=== PATIENT | male | born 1955 | race Caucasian/White ===

== ENCOUNTER 2020-03-03 11:37 | Outpatient (REF) | payer BC, SELFPAY ==
--- NOTE | 2020-03-03 11:45 | XR_ITS ---
EXAMINATION: XR HIP, RIGHT CLINICAL INFORMATION: Pelvis and right hip x-ray COMPARISON: DJD TECHNIQUE: Two views of the right hip and one view of the pelvis. FINDINGS: Bone alignment is normal. No fracture or dislocation is seen. There is a bilateral hip arthritis with joint space narrowing and osteophyte formation, moderate on the right and moderate to severe on the left. There is a small soft tissue ossification or calcification adjacent to the superior lateral right acetabulum. Bones of the pelvis are unremarkable. There are degenerative changes of the visualized lower lumbar spine. XR/XR hip RT w PEL1V IMPRESSION: Bilateral hip arthritis, left greater than right. Degenerative changes of the visualized lower lumbar spine.
== END 2020-03-03 11:38 | disposition home or self-care (01) ==
LOC: HO.XRAY 11:37
PROVIDERS: Visit Provider Physical Medicine & Rehabilitation
DX: M16.0 Bilateral primary osteoarthritis of hip (principal)
CPT/HCPCS: 73502

== ENCOUNTER → 2020-07-28 11:20 | Outpatient (BNVA) | payer BC, SELFPAY | PROVIDERS: PCP Family Medicine; Visit Provider Internal Medicine | DX: I48.0 Paroxysmal atrial fibrillation (principal); I10 Essential (primary) hypertension; G47.33 Obstructive sleep apnea (adult) (pediatric); Z51.81 Encounter for therapeutic drug level monitoring; Z79.899 Other long term (current) drug therapy; Z99.89 Dependence on other enabling machines and devices | CPT/HCPCS: 93005 ==

== ENCOUNTER 2021-04-28 09:34 | Outpatient (REF) | payer MEDICARE, BC, SELFPAY ==
[2021-04-28 11:00] LABS: COVID-19 Test Negative (Negative)
== END 2021-04-28 09:35 | disposition home or self-care (01) ==
LOC: HO.LAB 09:34
PROVIDERS: Visit Provider Internal Medicine
DX: Z20.822 Contact with and (suspected) exposure to COVID-19 (principal)
CPT/HCPCS: 36415; 87635; C9803

== ENCOUNTER → 2021-08-01 14:26 | Outpatient (BNVA) | payer MEDICARE, BC, SELFPAY | PROVIDERS: PCP Family Medicine; Referring Provider Family Medicine; Visit Provider Internal Medicine | DX: I48.0 Paroxysmal atrial fibrillation (principal); I10 Essential (primary) hypertension; G47.33 Obstructive sleep apnea (adult) (pediatric); Z51.81 Encounter for therapeutic drug level monitoring; Z79.899 Other long term (current) drug therapy; Z99.89 Dependence on other enabling machines and devices | CPT/HCPCS: 93005; 99212 ==

== ENCOUNTER → 2022-07-13 08:15 | Outpatient (REF) | payer MEDICARE, BC, SELFPAY ==
--- NOTE | ~2022-07-13 | NM_ITS ---
Myocardial perfusion study Indication: Paroxysmal atrial fibrillation with exertion shortness of breath evaluate for myocardial ischemia Technique: The patient was brought in for a Lexiscan perfusion study on 07/13/2022. Patient performed low-level exercise and was injected 0.4 mg of Lexiscan intravenously. Within a minute of injection, 35 mCi of sestamibi was given intravenously. Images were obtained using the SPECT gamma camera interlaced with the gating device. Images were obtained in supine position. Resting perfusion study was performed on 07/14/2022. Patient was administered 35 mCi of sestamibi intravenously at rest. Images were then obtained in supine position. Images obtained with and without CT attenuation. Total DLP 118 mGy-cm. Images were processed with the software and compared side to side in short axis, horizontal long axis and vertical long axis views. Findings: The stress perfusion study showed non attenuated images show minimally reduced uptake in the anterior wall and moderately reduced uptake in the inferobasal as well as mildly reduced uptake in the mid inferior wall of the LV myocardium. Remainder of the LV myocardium is normally perfused. Attenuation corrected images show minimally thinning of the anterior wall and moderately reduced uptake in the basal inferior wall of the LV myocardium... The gated study shows normal LV systolic function with calculated LVEF of 56%. LV cavity is normal in size. The gated study shows normal systolic wall thickening and contraction of segments. Resting study shows non attenuated some improvement in the basal inferior wall of the LV myocardium. Attenuation corrected images shows improved uptake in the basal inferior wall of the LV myocardium.. Gating at rest reveals normal systolic wall motion with ejection fraction at 59%. The findings are consistent with mild intensity small area of basal inferior wall ischemia. NM/NM cardiolite stress test Impression: 1. Myocardial perfusion imaging study shows mild intensity basal inferior wall ischemia 2. Gated LVEF is 59% 3. Transient ischemic dilatation not present EKG is nondiagnostic for ischemia
--- NOTE | 2022-07-13 08:21 | CA_ITS ---
Acquisition Time: 2022-07-13 08:38:57 Total Exercise Time: 00:07:07 Test Indications: AFIB Medications: SEE H Protocol: RALPH Max HR: 114 BPM 74% of Pred: 154 BPM Max BP: 160/080 mmHG Max Work Load: 8.7 METS Exercise stress test with exercise 7 min 7 sec of Ralph protocol achieving 74% MPHR with moderate SOB and fatigue and need to stop with non-diagnostic EKG for ischemia due to suboptimal heart rate. PT assited to sitting position and once breathing improved tested changed to pharmacological nuclear stress test with Lexiscan injection without anginal symptoms, without arrhythmias, normotensive reponse to injection with non-diagnositic EKG for ischemia. In recovery he was treated with Aminophylline 75mg IVP to rev erse Lexiscan. Nuclear images pending. Test reviewed with Dr Villalpando Referred By: Aakash Valles Overread By: YOSELYN ALFARO
== END ==
LOC: HO.CARD 08:15
PROVIDERS: PCP Family Medicine; Visit Provider Internal Medicine
DX: I48.0 Paroxysmal atrial fibrillation (principal)
CPT/HCPCS: 78452; 93017; A9500; J2785

== ENCOUNTER → 2022-07-19 08:53 | Outpatient (REF) | payer MEDICARE, BC, SELFPAY ==
--- NOTE | 2022-07-19 08:56 | CA_ITS ---
Transthoracic Echocardiogram Patient (Last, First, Middle): Lacho Lee Joseph Gender: Male Date of : 1955 Age: 66 Procedure Date: 07/19/2022 Procedure Type: Transthoracic Echocardiogram Location: OP Height: 187. cm Weight: 111.13 kg BSA: 2.36 m2 Heart Rate: bpm BP: 128 / 80 mmHg Tempering Kiln Tender: VIDAL Referring MD: Aakash Valles MD Butcher Scullion: Paul Gant MD Symptoms: I48.0 - Paroxysmal atrial fibrillation Study Quality: Good ECG Rhythm: Sinus Conclusions: - 1. Normal LV systolic function with mild LVH with grade 1 diastolic dysfunction 2. Mildly dilated left atrium 3. Normal cardiac valvular Doppler 4. Normal RV systolic pressure 5. No gross pericardial effusion Findings Left Ventricle Normal left ventricular size and systolic function. There is mildly increased left ventricular wall thickness. The visually estimated ejection fraction is between 60-65%. Spectral Doppler is indicative of an impaired relaxation filling pattern. E/E prime ratio is <8, consistent with normal filling pressures. Evidence suggests grade I (mild) diastolic dysfunction. Peak GLS is -17.2%, within normal limits Right Ventricle Normal right ventricular cavity size and systolic function. Atria The left atrium is mildly dilated. There is no evidence of interatrial shunt. The right atrium is normal in size. Aortic Valve The aortic valve structure and function is likely normal. There is no aortic valve stenosis. There is no aortic valve regurgitation. Mitral Valve Normal mitral valve structure and function. There is trace mitral valve regurgitation. There is no mitral valve stenosis. Pulmonic Valve The pulmonic valve is likely normal. There is trace to mild pulmonic valve regurgitation. Tricuspid Valve Normal tricuspid valve structure. There is trace tricuspid valve regurgitation. The right ventricular systolic pressure is normal. The right ventricular systolic pressure is 21 mmHg. Normal right atrial pressure. There is no evidence of pulmonary hypertension. Great Vessels All visible segments of the aorta are normal in size. The pulmonary artery was not well visualized. Venous The inferior vena cava is normal in size and collapses greater than 50% with inspiration. Pericardium/Pleural There is no evidence of pericardial effusion. Prior Study Comparison No significant change compared to prior study dated: 07/11/2018. Measurements 2D Linear Measurements RVIDd: 4.67 RVIDd Index: 1.98 IVSd: 1.23 0.6-0.9/0.6-1.0 cm LVIDd: 4.78 3.9-5.3/4.2-5.9 cm LVIDd Index: 2.03 2.4-3.2/2.2-3.1 cm/m2 LVIDs: 2.89 2.0-3.6 cm LVPWd: 1.22 0.7-1.1 cm Ao Root: 3.60 2.1-3.5 cm LA Diam: 4.20 2.7-3.8/3.0-4.0 cm LAIDs Index: 1.78 1.5-2.3 cm/m2 LV Mass: 279.47 67-162/88-224 g LV Mass Index: 118.42 43-95/49-115 g/m2 LVOT Diam: 2.20 3.0+(-)1.3 cm 2D Systolic Function EF 4C: 59.00 >55% EF 2C: 61.30 >55% EF BiP: 60.30 >55% Mitral Valve MV Pk E: 0.77 MV PK A: 0.83 MV Decel Time: 195.00 E/A: 0.90 E'Lateral: 9.46 E'Medial: 6.31 E/E' Med: 12.20 E/E' Lat: 8.20 PHT: 57.00 MVA PHT: 3.86 Decel [place]: 3.96 Aortic Valve AoV Pk Harshal: 1.51 AoV Mn Harshal: 1.03 AoV VTI: 0.37 AoV Pk Grad: 9.00 Aov Mn Grad: 5.00 [place] Cont.VTI: 2.48 LVOT LVOT Pk Harshal: 1.01 LVOT Mn Harshal: 0.59 LVOT VTI: 0.24 LVOT Pk Grad: 4.00 LVOT Mn Grad: 2.00 LVOT Diam: 2.20 LVOT Area: 3.80 Diastolic Function MV Pk E: 0.77 MV Pk A: 0.83 E/A: 0.90 E'Medial: 6.31 E/E' Med: 12.20 E' Laterial: 9.46 E/E' Lat: 8.20 Right Ventricle TAPSE (mm): 30.00 TVS' Harshal: 13.00 Tricuspid Valve TR Pk Harshal: 2.15 TR Pk Grad: 18.00 RA Press: 3.00 RVSP: 21.00 Great Vessels Aorta Ao Root-2D: 3.60 2.0-3.7 cm Ao Asc: 3.40 2.1-3.4 cm Ao Arch: 3.50 Pulmonary Valve PV Pk Harshal: 1.15 Peak PV Grad: 5.00 Updated in Other Vendor System with Status of Final Paul Gant MD electronically signed on 07/19/2022 1:53:33 PM with status of Final
== END ==
LOC: HO.CARD 08:53
PROVIDERS: PCP Family Medicine; Visit Provider Internal Medicine
DX: I48.0 Paroxysmal atrial fibrillation (principal)
CPT/HCPCS: 93306; 93356

== ENCOUNTER 2022-07-24 15:24 | Outpatient (REF) | payer MEDICARE, BC, SELFPAY ==
[2022-07-24 16:49] LABS: Anion Gap 15 (12-20); Blood Urea Nitrogen 17 mg/dL (9-16); Carbon Dioxide 23 mmol/L (22-29); Chloride 107 mmol/L (96-108); Estimated Glomerular Filt Rate > 60; Glucose Random 100 mg/dL (60-115); Potassium 4.3 mmol/L (3.3-5.1); Sodium 141 mmol/L (135-145)
== END 2022-07-24 15:25 | disposition home or self-care (01) ==
LOC: HO.LAB 15:24
PROVIDERS: Visit Provider Nurse Practitioner Family
DX: R94.39 Abnormal result of other cardiovascular function study (principal)
CPT/HCPCS: 36415; 80048

== ENCOUNTER → 2022-08-29 08:44 | Outpatient (BNVA) | payer MEDICARE, BC, SELFPAY | PROVIDERS: PCP Family Medicine; Referring Provider Family Medicine; Visit Provider Internal Medicine | DX: I25.10 Atherosclerotic heart disease of native coronary artery without angina pectoris (principal); I48.0 Paroxysmal atrial fibrillation; I10 Essential (primary) hypertension; G47.33 Obstructive sleep apnea (adult) (pediatric); Z51.81 Encounter for therapeutic drug level monitoring; Z79.899 Other long term (current) drug therapy; Z99.89 Dependence on other enabling machines and devices | CPT/HCPCS: 93005; 99212 ==

== ENCOUNTER → 2022-08-31 11:28 | Outpatient (REF) | payer MEDICARE, BC, SELFPAY ==
--- NOTE | 2022-08-31 11:30 | HM_ITS ---
Conclusion: 1. Patient was monitored for total period of 3 days 2. Baseline was normal sinus rhythm with average heart rate of 83 beats per minute 3. Intermittent episodes of atrial fibrillation, with total burden of 42.5% with longest episode lasting 9 hour and 36 minutes with fastest heart of 150 beats per minute 4. Frequent PACs with total burden of 8.5% 6. Frequent PVCs with total burden of 1.2% 7. 12 nonsustained ventricular tachycardia events noted with longest lasting 8 beats and the fastest 150 beats per minute, aberrant atrial flutter cannot be entirely ruled out 8. Patient reported 6 events that correlated with atrial fibrillation MTDD
== END ==
LOC: HO.CARD 11:28
PROVIDERS: PCP Family Medicine; Visit Provider Internal Medicine
DX: I48.0 Paroxysmal atrial fibrillation (principal); R00.2 Palpitations
CPT/HCPCS: 93242

== ENCOUNTER → 2022-09-12 08:30 | Outpatient (BNVA) | payer MEDICARE, BC, SELFPAY | PROVIDERS: PCP Family Medicine; Referring Provider Family Medicine; Visit Provider Internal Medicine | DX: R00.1 Bradycardia, unspecified (principal) | CPT/HCPCS: 93005 ==

== ENCOUNTER → 2022-09-28 09:00 | Outpatient (REF) | payer MEDICARE, BC, SELFPAY ==
--- NOTE | 2022-09-28 09:03 | HM_ITS ---
* Total monitoring time 3 days. * Underlying rhythm is sinus. Average ventricular rate 63/Min. Range 45 to 81/Min. About 55% of the time, rate less than 60/Min. * Atrial fibrillation/flutter burden is 8.4%. Longest for 6 hours. Fastest 137/Min. * Frequent supraventricular ectopy with a burden of 3.8 %. * No significant pauses. * Occasional PVCs with a burden of 1.5%. Very brief runs. Longest 4 beats. * Patient markers used in association with sinus rhythm, PACs, AF atrial fibrillation. Palpitations in patient diary correlates with the above. MTDD
== END ==
LOC: HO.CARD 09:00
PROVIDERS: PCP Family Medicine; Visit Provider Internal Medicine
DX: I48.0 Paroxysmal atrial fibrillation (principal)
CPT/HCPCS: 93242

== ENCOUNTER 2022-10-02 09:34 | Outpatient (REF) | payer MEDICARE, BC, SELFPAY ==
[2022-10-02 10:04] LABS: Hematocrit 45.1 % (42.0-52.0); Hemoglobin 15.7 g/dl (14.0-18.0); Mean Corpuscular HGB Conc 34.8 g/dl (31.0-36.0); Mean Corpuscular Hemoglobin 31.5 pg (27.0-33.0); Mean Corpuscular Volume 90.4 fL (80.0-98.0); Mean Platelet Volume 9.7 fL (9.4-12.4); Platelet Count 221 X10*3/uL (160-400); Red Blood Count 4.99 X10*6/uL (4.60-5.80); Red Cell Distribution Width 11.8 % (11.0-16.0); White Blood Count 6.1 X10*3/uL (4.8-10.8)
[2022-10-02 10:08] LABS: INTERNATIONAL NORM RATIO 1.5 (0.9-1.1); Prothrombin Time 17.9 SEC (10.0-13.1)
[2022-10-02 10:39] LABS: Anion Gap 13 (12-20); Blood Urea Nitrogen 14 mg/dL (9-16); Calcium 9.3 mg/dL (8.4-10.2); Carbon Dioxide 24 mmol/L (22-29); Chloride 109 mmol/L (96-108); Estimated Glomerular Filt Rate > 60; Glucose Random 105 mg/dL (60-115); Potassium 3.9 mmol/L (3.3-5.1); Sodium 142 mmol/L (135-145)
== END 2022-10-02 09:35 | disposition home or self-care (01) ==
LOC: HO.LAB 09:34
PROVIDERS: PCP Family Medicine; Visit Provider Internal Medicine
DX: I25.10 Atherosclerotic heart disease of native coronary artery without angina pectoris (principal)
CPT/HCPCS: 36415; 80048; 85027; 85610

== ENCOUNTER → 2022-10-26 13:25 | Outpatient (BNVA) | payer MEDICARE, BC, SELFPAY | PROVIDERS: PCP Family Medicine; Referring Provider Family Medicine; Visit Provider Internal Medicine | DX: I25.10 Atherosclerotic heart disease of native coronary artery without angina pectoris (principal); I48.0 Paroxysmal atrial fibrillation; I10 Essential (primary) hypertension; E78.5 Hyperlipidemia, unspecified; G47.33 Obstructive sleep apnea (adult) (pediatric); Z98.890 Other specified postprocedural states; Z99.89 Dependence on other enabling machines and devices; Z79.899 Other long term (current) drug therapy | CPT/HCPCS: 93005; 99212 ==

== ENCOUNTER → 2022-11-02 11:16 | Outpatient (BNVA) | payer MEDICARE, BC, SELFPAY | PROVIDERS: PCP Family Medicine; Visit Provider Internal Medicine | DX: R00.1 Bradycardia, unspecified (principal) | CPT/HCPCS: 93005 ==

== ENCOUNTER 2022-12-13 09:54 | Outpatient (REF) | payer MEDICARE, BC, SELFPAY ==
[2022-12-13 11:17] LABS: Alanine Aminotransferase 43 U/L (0-40); Albumin Level 4.3 g/dL (3.5-5.0); Alkaline Phosphatase 59 U/L (39-117); Aspartate Amino Transferase 52 U/L (5-37); Bilirubin Direct 0.4 mg/dL (0.0-0.5); Bilirubin Total 0.9 mg/dL (0.0-1.0); Cholesterol 119 mg/dL; HDL Cholesterol 46 mg/dL; LDL Cholesterol Calculated 62 mg/dl; Total Protein 7.2 g/dL (6.5-8.0); Triglycerides 58 mg/dL
[2022-12-13 11:35] LABS: TSH reflex Free T4 2.22 uIU/mL (0.32-4.0)
== END 2022-12-13 09:55 | disposition home or self-care (01) ==
LOC: HO.LAB 09:54
PROVIDERS: PCP Family Medicine; Visit Provider Internal Medicine
DX: E78.5 Hyperlipidemia, unspecified (principal); I25.10 Atherosclerotic heart disease of native coronary artery without angina pectoris; I48.0 Paroxysmal atrial fibrillation
CPT/HCPCS: 36415; 80061; 80076; 84443

== ENCOUNTER 2023-03-06 10:38 | Outpatient (REF) | payer MEDICARE, BC, SELFPAY ==
[2023-03-06 12:13] LABS: Alanine Aminotransferase 37 U/L (0-40); Albumin Level 4.2 g/dL (3.5-5.0); Alkaline Phosphatase 60 U/L (39-117); Aspartate Amino Transferase 33 U/L (5-37); Bilirubin Direct 0.3 mg/dL (0.0-0.5); Bilirubin Total 0.8 mg/dL (0.0-1.0)
== END 2023-03-06 10:39 | disposition home or self-care (01) ==
LOC: HO.LAB 10:38
PROVIDERS: Visit Provider Internal Medicine
DX: I25.10 Atherosclerotic heart disease of native coronary artery without angina pectoris (principal); R79.89 Other specified abnormal findings of blood chemistry
CPT/HCPCS: 36415; 80076

== ENCOUNTER 2023-04-11 09:09 | Outpatient (AMB) | payer MEDICARE, BC, SELFPAY ==
[2023-04-11 09:18] VITALS: BP 118/70; PULSE 52; BMI 29.7
--- NOTE | 2023-04-11 09:18 | MHC.OFFVIS ---
Intake Vital Signs 04/11/23 09:18 Height 6 ft 2 in Weight 231 lb 7.766 oz BMI 29.7 BP 118/70 Blood Pressure Location Lt brachial Position Sitting Pulse 52 Intake Visit Reasons: follow up Intake Note: follow up w/ EKG Senior Planning Manager Required: No Accompanied by: Spouse Allergies Penicillins [PENICILLINS] Allergy (Intermediate, Verified 04/11/23 09:19) RASH Medication List - Last Reconciled 04/11/23 by Aakash Valles MD amiodarone 200 mg PO DAILY amlodipine (Norvasc) 10 mg PO DAILY atenolol 100 mg PO DAILY azelaic acid 15% 1 appl topical BID gabapentin (Neurontin) 600 mg PO TID pantoprazole (Protonix) 40 mg PO DAILY rivaroxaban (Xarelto) 20 mg PO DAILY 90 days rosuvastatin 40 mg PO DAILY HPI HPI Comments History of Present Illness Details Suman returns for follow-up regarding atrial fibrillation, coronary disease. He was maintained on flecainide for a long time but after diagnosis of CAD that was stopped. Then put on amiodarone and went for ablation. After the ablation, he states he is actually feeling pretty good. No new issues. No other concerns. Exercising regularly with no issues. 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) Family History Father Cancer Mother Stroke CVD (cardiovascular disease) Social History Alcohol intake: current Alcohol intake frequency: a few times a week Patient Tobacco Use Status: Never used Tobacco Review of Systems Const All systems reviewed & are unremarkable except as noted in HPI and below Reports as per HPI and Reports no additional complaints Eyes Reports as per HPI and Denies no additional complaints ENT Denies no additional complaints and Reports as per HPI Card Reports as per HPI, Reports no additional complaints, Denies acrocyanosis, Denies chest pain, Denies leg edema, Denies lightheadedness, Denies palpitations and Denies dyspnea Resp Reports as per HPI, Denies no additional complaints and Denies dyspnea GI Reports as per HPI and Denies no additional complaints Reports no additional complaints and Reports as per HPI Musc Reports no additional complaints and Reports as per [facility] Skin/Breast Reports system reviewed and no additional complaints, except as documented Neuro Reports no additional complaints and Reports as per HPI Psych Reports no additional complaints and Reports as per HPI Endo Reports no additional complaints, Reports as per HPI and Denies palpitations Daniel/Lymph Reports no additional complaints and Reports as per HPI Aller/Immun Reports no additional complaints and Reports as per HPI Physical Exam Vital Signs: Last Vital Signs Pulse 52 04/11/23 09:18 BP 118/70 04/11/23 09:18 BMI result Body Mass Index 29.7 Const General: comfortable and no acute distress Orientation/consciousness: patient oriented x3 HEENT Other: Unremarkable Head: Yes normal to inspection Neck Neck: Yes normal visual inspection Chest Chest palpation & inspection: normal inspection of the chest Resp Auscultation: clear to auscultation bilaterally Cardio Palpation: normal PMI Heart sounds: S1 normal heart sound present, S2 normal heart sound present, no gallops, no murmurs and no rubs GI Palpation (GI): Soft to palpation Back/Spine/Pelvis Other: unremarkable Skin General skin exam: no rashes or lesions noted Neuro General: patient oriented x3 Extrem General: Yes normal to inspection Psych Mental Status: mental status grossly normal Office Procedures EKG Details: EKG with sinus bradycardia at 52/Min; no significant ST-T changes and otherwise unremarkable[place] [id number], Complete Assessment & Plan Assessment & Plan (1) Atherosclerotic cardiovascular disease: Code(s): I25.10 - Atherosclerotic heart disease of [place] coronary artery without angina pectoris Plan: Cardiac catheterization data reviewed. Left main 40-50% stenosis. Moderate LAD disease. D1 70% stenosis. CT of the left PDA with [id number]-haqu collaterals. Small RCA with mild disease. Last LDL 101 mg/dL. Continue beta-blockers and statins. Cholesterol is well controlled. (2) PAF (paroxysmal atrial fibrillation): Code(s): I48.0 - Paroxysmal atrial fibrillation Plan: Status post ablation. He still on amiodarone as it has been only been a few days. After EP follow-up, this can be stopped hopefully soon. Continue anticoagulation-he will need this long-term. Holter before next visit. (3) Encounter for monitoring anti-arrhythmic therapy: Code(s): Z51.81 - Encounter for therapeutic drug level monitoring; Z79.899 - Other custodial (current) drug therapy Plan: On amiodarone. To be stopped in the next 3 or 4 weeks after EP appointment. (4) Essential hypertension: Code(s): I10 - Essential (primary) hypertension Plan: Stable on amlodipine/atenolol. No changes. (5) ANNABELLA on CPAP: Code(s): G47.33 - Obstructive sleep apnea (adult) (pediatric); Z99.89 - Dependence on other enabling machines and devices Plan: Continue CPAP. Plan Discussed with . Orders: Orders ECG 3 day holter monitor 6 Months I48.0 - Paroxysmal atrial fibrillation Coding Level of Care Code Est Pt Level 4 (79254) Diagnoses Atherosclerotic cardiovascular disease I25.10 PAF (paroxysmal atrial fibrillation) I48.0 Encounter for monitoring anti-arrhythmic therapy Z51.81; Z79.899 Essential hypertension I10 ANNABELLA on CPAP G47.33; Z99.89 CPT Codes EKG - CPT: 46533-[id number], Complete ([id number])
== END 2023-04-11 09:48 | disposition home or self-care (01) ==
PROVIDERS: PCP Family Medicine; Visit Provider Internal Medicine
DX: I25.10 Atherosclerotic heart disease of native coronary artery without angina pectoris (principal); I48.0 Paroxysmal atrial fibrillation; Z51.81 Encounter for therapeutic drug level monitoring; Z79.899 Other long term (current) drug therapy; I10 Essential (primary) hypertension; G47.33 Obstructive sleep apnea (adult) (pediatric); Z99.89 Dependence on other enabling machines and devices
CPT/HCPCS: 93010; 99214

== ENCOUNTER → 2023-04-11 09:09 | Outpatient (BNVA) | payer MEDICARE, BC, SELFPAY | PROVIDERS: PCP Family Medicine; Visit Provider Internal Medicine | DX: I25.10 Atherosclerotic heart disease of native coronary artery without angina pectoris (principal); I48.0 Paroxysmal atrial fibrillation; I10 Essential (primary) hypertension; G47.33 Obstructive sleep apnea (adult) (pediatric); Z51.81 Encounter for therapeutic drug level monitoring; Z79.899 Other long term (current) drug therapy; Z99.89 Dependence on other enabling machines and devices | CPT/HCPCS: 93005; 99212 ==

== ENCOUNTER 2023-06-12 12:03 | Outpatient (REF) | payer MEDICARE, BC, SELFPAY ==
--- NOTE | ~2023-06-12 | XR_ITS ---
EXAMINATION: XR ELBOW, LEFT CLINICAL INFORMATION: Investigated DJD loose body COMPARISON: None available. TECHNIQUE: AP, lateral, and oblique views of the left elbow. FINDINGS: Small olecranon spur. Bones joints soft tissues otherwise unremarkable. Joint spaces normal No effusion. No fracture. XR/XR elbow LT min 3V IMPRESSION: Small olecranon spur. No arthrosis detected
== END 2023-06-12 12:04 | disposition home or self-care (01) ==
LOC: HO.XRAY 12:03
PROVIDERS: PCP Family Medicine; Visit Provider Physical Medicine & Rehabilitation
DX: M77.8 Other enthesopathies, not elsewhere classified (principal)
CPT/HCPCS: 73080

== ENCOUNTER → 2023-09-04 11:03 | Outpatient (REF) | payer MEDICARE, BC, SELFPAY ==
--- NOTE | 2023-09-04 11:05 | HM_ITS ---
* Total monitoring time 3 days. * Underlying rhythm is sinus with an average rate of 61/Min. * Atrial fibrillation noted with a burden of about 5%. Longest episode under 4 hours. Fastest 127/Min. * Frequent supraventricular ectopy with a burden of 4.7%. * Rare ventricular ectopy. Couplets, triplets, bigeminy and trigeminy noted. Few short runs. Longest 4 beats. * No significant pauses or AV blocks. * Patient markers noted in association with sinus rhythm, supraventricular and ventricular ectopy. * Palpitations in patient diary correlates with supraventricular and ventricular ectopy. MTDD
== END ==
LOC: HO.CARD 11:03
PROVIDERS: Visit Provider Internal Medicine
DX: I48.0 Paroxysmal atrial fibrillation (principal)
CPT/HCPCS: 93242

== ENCOUNTER → 2023-09-04 11:05 | Outpatient (BNV) | payer MEDICARE, BC, SELFPAY | PROVIDERS: Visit Provider Internal Medicine | DX: I48.91 Unspecified atrial fibrillation (principal); I47.10 Supraventricular tachycardia, unspecified | CPT/HCPCS: 93244 ==

== ENCOUNTER → 2023-09-20 10:08 | Outpatient (BNVA) | payer MEDICARE, BC, SELFPAY | PROVIDERS: Visit Provider Internal Medicine ==

== ENCOUNTER 2023-10-15 10:12 | Outpatient (AMB) | payer MEDICARE, BC, SELFPAY ==
--- NOTE | 2023-10-15 10:17 | A.OFFVIS_ITS ---
Vital Signs 10/15/23 10:18 Height 6 ft 2 in Weight 224 lb 13.944 oz BMI 28.9 BP 120/68 Blood Pressure Location Lt brachial Position Sitting Pulse 54 Pulse Source Monitor Intake Visit Reasons: 6 mth f/up Allergies Penicillins [PENICILLINS] Allergy (Intermediate, Verified 04/11/23 09:19) RASH Medication List - Last Reconciled 10/15/23 by Aakash Valles MD amlodipine (Norvasc) 10 mg PO DAILY azelaic acid 15% 1 appl topical BID dronedarone (Multaq) 400 mg PO BID 30 days gabapentin (Neurontin) 600 mg PO TID metoprolol succinate ER 100 mg PO DAILY pantoprazole (Protonix) 40 mg PO DAILY rivaroxaban (Xarelto) 20 mg PO DAILY rosuvastatin 40 mg PO DAILY HPI Comments Details: Suman returns for follow-up regarding atrial fibrillation, coronary disease. He was maintained on flecainide for a long time but after diagnosis of CAD that was stopped. Then put on amiodarone and went for ablation. After the ablation, he was initially feeling okay but again having palpitations. Then Holter had shown frequent PACs as well as atrial fibrillation. Then we tried Multaq and now he states he is back to normal again. No other concerns. [facility] Medical History (Updated 08/29/22 @ 09:16 by Aakash Valles MD) ANNABELLA on CPAP Essential hypertension PAF (paroxysmal atrial fibrillation) Surgical History History of total right knee replacement (~01/02/19) Family History Father Cancer Mother Stroke CVD (cardiovascular disease) Social History Alcohol intake: current Alcohol intake frequency: a few times a week Patient Tobacco Use Status: Never used Tobacco Review of Systems Const Denies weakness ENT Denies dizziness Card Denies chest pain, Denies chest pain with activity, Denies syncope, Denies rapid heart rate, Denies pedal edema, Denies edema, Denies leg edema, Denies lightheadedness, Denies palpitations, Denies dyspnea, Denies dyspnea on exertion and Denies orthopnea Resp Denies cough, Denies dyspnea and Denies dyspnea on exertion GI Denies hematochezia and Denies change in stool character Musc Denies abnormal gait, Denies muscle cramps, Denies muscle weakness, Denies numbness, Denies radiating pain into limb and Denies tingling Neuro Denies abnormal gait, Denies dizziness, Denies syncope, Denies numbness, Denies tingling and Denies weakness Endo Denies palpitations Physical Exam Vital Signs: Last Vital Signs Pulse 54 10/15/23 10:18 BP 120/68 10/15/23 10:18 BMI result Body Mass Index 28.9 Const General: comfortable and no acute distress Orientation/consciousness: patient oriented x3 HEENT Other: Unremarkable Head: Yes normal to inspection Neck Neck: Yes normal visual inspection Chest Chest palpation & inspection: normal inspection of the chest Resp Auscultation: clear to auscultation bilaterally Cardio Palpation: normal PMI Heart sounds: S1 normal heart sound present, S2 normal heart sound present, no gallops, no murmurs and no rubs GI Palpation (GI): Soft to palpation Back/Spine/Pelvis Other: unremarkable Skin General skin exam: no rashes or lesions noted Neuro General: patient oriented x3 Extrem General: Yes normal to inspection Psych Mental Status: mental status grossly normal Office Procedures EKG Details: EKG with sinus bradycardia at 54/Min; no significant ST-T changes and otherwise unremarkable[place]. [id number], Complete Assessment & Plan Assessment & Plan (1) Atherosclerotic cardiovascular disease: Code(s): I25.10 - Atherosclerotic heart disease of [place] coronary artery without angina pectoris Category: Medical Plan: Cardiac catheterization data reviewed. Left main 40-50% stenosis. Moderate LAD disease. D1 70% stenosis. HEAVY REPAIRER of the left PDA with [id number] collaterals. Small RCA with mild disease. Last LDL 62mg/dl. Continue beta-blockers and statins. (2) PAF (paroxysmal atrial fibrillation): Code(s): I48.0 - Paroxysmal atrial fibrillation Category: Medical Plan: Status post ablation. Recent Holter shows atrial fibrillation burden of 5% and also has frequent PACs. Seems much improved on Multaq. We can continue this for 6 months or so. Then probably stop it and repeat Holter. If he has recurrence of atrial fibrillation, then consider repeat ablation. However, if he just has frequent PACs rather, that will not be ablatable, and most likely med management only. We discussed about these issues today. (3) Encounter for monitoring anti-arrhythmic therapy: Code(s): Z51.81 - Encounter for therapeutic drug level monitoring; Z79.899 - Other watermelon harvesting supervisor (current) drug therapy Category: Medical Plan: On Multaq. Repeat EKG in 3 months. (4) Essential hypertension: Code(s): I10 - Essential (primary) hypertension Category: Medical Plan: Stable. (5) ANNABELLA on CPAP: Code(s): G47.33 - Obstructive sleep apnea (adult) (pediatric); Z99.89 - Dependence on other enabling machines and devices Category: Medical Plan: Continue CPAP. Plan Discussed with . Coding Level of Care Code Est Pt Level 4 (32662) Diagnoses Atherosclerotic cardiovascular disease I25.10 PAF (paroxysmal atrial fibrillation) I48.0 Encounter for monitoring anti-arrhythmic therapy Z51.81; Z79.899 Essential hypertension I10 ANNABELLA on CPAP G47.33; Z99.89 CPT Codes EKG - CPT: 58304-[id number], Complete ([id number])
[2023-10-15 10:18] VITALS: BP 120/68; PULSE 54; BMI 28.9
== END 2023-10-15 10:48 | disposition home or self-care (01) ==
PROVIDERS: PCP Family Medicine; Visit Provider Internal Medicine
DX: I25.10 Atherosclerotic heart disease of native coronary artery without angina pectoris (principal); I48.0 Paroxysmal atrial fibrillation; Z51.81 Encounter for therapeutic drug level monitoring; Z79.899 Other long term (current) drug therapy; I10 Essential (primary) hypertension; G47.33 Obstructive sleep apnea (adult) (pediatric); Z99.89 Dependence on other enabling machines and devices
CPT/HCPCS: 93010; 99214

== ENCOUNTER → 2023-10-15 10:12 | Outpatient (BNVA) | payer MEDICARE, BC, SELFPAY | PROVIDERS: PCP Family Medicine; Visit Provider Internal Medicine | DX: I25.10 Atherosclerotic heart disease of native coronary artery without angina pectoris (principal); I48.0 Paroxysmal atrial fibrillation; I10 Essential (primary) hypertension; G47.33 Obstructive sleep apnea (adult) (pediatric); Z51.81 Encounter for therapeutic drug level monitoring; Z79.899 Other long term (current) drug therapy; Z99.89 Dependence on other enabling machines and devices | CPT/HCPCS: 93005; 99212 ==

== ENCOUNTER → 2024-01-16 10:58 | Outpatient (BNVA) | payer MEDICARE, BC, SELFPAY | PROVIDERS: PCP Family Medicine; Visit Provider Internal Medicine ==

== ENCOUNTER 2024-04-16 12:30 | Outpatient (AMB) | payer MEDICARE, BC, SELFPAY ==
--- NOTE | 2024-04-16 12:39 | MHC.OFFVIS ---
Vital Signs 04/16/24 12:40 Height 6 ft 2 in Weight 240 lb 4.862 oz BMI 30.8 BP 120/68 Blood Pressure Location Lt brachial Position Sitting Pulse 61 Pulse Source Monitor Intake Visit Reasons: 6 mth f/up w/ ekg Allergies Penicillins [PENICILLINS] Allergy (Intermediate, Verified 04/11/23 09:19) RASH Medication List - Last Reconciled 04/16/24 by Aakash Valles MD amlodipine (Norvasc) 10 mg PO DAILY azelaic acid 15% 1 appl topical BID dronedarone (Multaq) 400 mg PO BID 30 days gabapentin (Neurontin) 600 mg PO TID metoprolol succinate ER 100 mg PO DAILY pantoprazole (Protonix) 40 mg PO DAILY rivaroxaban (Xarelto) 20 mg PO DAILY rosuvastatin 40 mg PO DAILY HPI Comments Details: Suman returns for follow-up regarding atrial fibrillation, coronary disease. He was maintained on flecainide for a long time but after diagnosis of CAD that was stopped. Then put on amiodarone and went for ablation. After the ablation, he was initially feeling okay but again having palpitations. Then Holter had shown frequent PACs as well as atrial fibrillation. Since then, he has been on Multaq. Overall, for the most part he feels fine. Some palpitations but not too frequent. His Apple watch does show some atrial fibrillation alerts but not clear if it is just from frequent PACs or not as it is difficult to say looking at the strips. [facility] Medical History (Updated 08/29/22 @ 09:16 by Aakash Valles MD) ANNABELLA on CPAP Essential hypertension PAF (paroxysmal atrial fibrillation) Surgical History History of total right knee replacement (~01/02/19) Family History Father Cancer Mother Stroke CVD (cardiovascular disease) Social History Alcohol intake: current Alcohol intake frequency: a few times a week Patient Tobacco Use Status: Never used Tobacco Review of Systems Const Denies weakness ENT Denies dizziness Card Denies chest pain, Denies chest pain with activity, Denies syncope, Denies rapid heart rate, Denies pedal edema, Denies edema, Denies leg edema, Denies lightheadedness, Denies palpitations, Denies dyspnea, Denies dyspnea on exertion and Denies orthopnea Resp Denies cough, Denies dyspnea and Denies dyspnea on exertion GI Denies hematochezia and Denies change in stool character Musc Denies abnormal gait, Denies muscle cramps, Denies muscle weakness, Denies numbness, Denies radiating pain into limb and Denies tingling Neuro Denies abnormal gait, Denies dizziness, Denies syncope, Denies numbness, Denies tingling and Denies weakness Endo Denies palpitations Physical Exam Vital Signs: Last Vital Signs Pulse 61 04/16/24 12:40 BP 120/68 04/16/24 12:40 BMI result Body Mass Index 30.8 Const General: comfortable and no acute distress Orientation/consciousness: patient oriented x3 HEENT Other: Unremarkable Head: Yes normal to inspection Neck Neck: Yes normal visual inspection Chest Chest palpation & inspection: normal inspection of the chest Resp Auscultation: clear to auscultation bilaterally Cardio Palpation: normal PMI Heart sounds: S1 normal heart sound present, S2 normal heart sound present, no gallops, Murmur heart sound present systolic II/ and at the right sternal border and no rubs GI Palpation (GI): Soft to palpation Back/Spine/Pelvis Other: unremarkable Skin General skin exam: no rashes or lesions noted Neuro General: patient oriented x3 Extrem General: Yes normal to inspection Psych Mental Status: mental status grossly normal Office Procedures EKG Details: EKG with sinus rhythm at 61/Min; premature atrial contractions; [place] [address]-Uhqbcnywlaqfgzvub, Complete Assessment & Plan Assessment & Plan (1) Atherosclerotic cardiovascular disease: Code(s): I25.10 - Atherosclerotic heart disease of [place] coronary artery without angina pectoris Category: Medical Plan: Cardiac catheterization data reviewed. Left main 40-50% stenosis. Moderate LAD disease. D1 70% stenosis. 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 Small RCA with mild disease. Last LDL 58mg/dl. Continue beta-blockers and statins. (2) PAF (paroxysmal atrial fibrillation): Code(s): I48.0 - Paroxysmal atrial fibrillation Category: Medical Plan: Status post ablation. Last Holter shows atrial fibrillation burden of 5% and also has frequent PACs. Hence back on antiarrhythmic therapy and tolerating Multaq well. Possibly continue this bdob-pnag-at be decided. We will recheck another Holter in about 6 months' time. Due to history of frequent PACs, there is a definitely increased risk of recurrent atrial fibrillation. Continue Xarelto. (3) Encounter for monitoring anti-arrhythmic therapy: Code(s): Z51.81 - Encounter for therapeutic drug level monitoring; Z79.899 - Other teacher early childhood development (current) drug therapy Category: Medical Plan: On Multaq. Repeat EKG in 3 months. (4) Essential hypertension: Code(s): I10 - Essential (primary) hypertension Category: Medical Plan: Stable. (5) ANNABELLA on CPAP: Code(s): G47.33 - Obstructive sleep apnea (adult) (pediatric); Z99.89 - Dependence on other enabling machines and devices Category: Medical Plan: Continue CPAP. Plan Discussed with . Orders: Orders ECG 3 day holter monitor 6 Months I48.0 - Paroxysmal atrial fibrillation Coding Level of Care Code Est Pt Level 4 (47968) Diagnoses Atherosclerotic cardiovascular disease I25.10 PAF (paroxysmal atrial fibrillation) I48.0 Encounter for monitoring anti-arrhythmic therapy Z51.81; Z79.899 Essential hypertension I10 ANNABELLA on CPAP G47.33; Z99.89 CPT Codes EKG - CPT: 57417-[id number], Complete ([id number])
[2024-04-16 12:40] VITALS: BP 120/68; PULSE 61; BMI 30.8
== END 2024-04-16 13:16 | disposition home or self-care (01) ==
PROVIDERS: PCP Family Medicine; Visit Provider Internal Medicine
DX: I25.10 Atherosclerotic heart disease of native coronary artery without angina pectoris (principal); I48.0 Paroxysmal atrial fibrillation; Z51.81 Encounter for therapeutic drug level monitoring; Z79.899 Other long term (current) drug therapy; I10 Essential (primary) hypertension; G47.33 Obstructive sleep apnea (adult) (pediatric); Z99.89 Dependence on other enabling machines and devices
CPT/HCPCS: 93010; 99214

== ENCOUNTER → 2024-04-16 12:30 | Outpatient (BNVA) | payer MEDICARE, BC, SELFPAY | PROVIDERS: PCP Family Medicine; Visit Provider Internal Medicine | DX: I25.10 Atherosclerotic heart disease of native coronary artery without angina pectoris (principal); I48.0 Paroxysmal atrial fibrillation; I10 Essential (primary) hypertension; G47.33 Obstructive sleep apnea (adult) (pediatric); Z51.81 Encounter for therapeutic drug level monitoring; Z79.899 Other long term (current) drug therapy; Z99.89 Dependence on other enabling machines and devices | CPT/HCPCS: 93005; 99212 ==

== ENCOUNTER → 2024-07-10 10:55 | Outpatient (BNVA) | payer MEDICARE, BC, SELFPAY | PROVIDERS: PCP Family Medicine; Visit Provider Internal Medicine ==

== ENCOUNTER → 2024-09-29 11:25 | Outpatient (REF) | payer MEDICARE, BC, SELFPAY ==
--- OUTSIDE RECORDS SUMMARY | 2024-09-29 12:42 | XMS_ITS | Patient Health Record ---
Author Organization [facility] sabi [place] Address [address] [place] [place] [address] Care Team Providers Care Environmental Conflict Manager Name Role Phone Yana Echols MD Primary Care Provider Marion Butt Unavailable [phone] Allergies Allergen (clinical drug ingredient) Drug/Non Drug Allergy documented on EMR Reaction Allergy Type Onset Date Status Penicillin Unknown Drug Allergy Active Reason For Referral No Information Medications Medication SIG (Take, Route, Frequency, Duration) Notes Start Date End Date Status Rosuvastatin Calcium 40 MG TAKE 1 TABLET BY MOUTH DAILY Oral for 90 Days Active Metoprolol Succinate ER 100 MG TAKE 1 TABLET BY MOUTH DAILY Oral for 90 Days Active Doxycycline Hyclate 50 MG SPLIT TABLET A ND TAKE 1/2 TABLET IN THE MORNING AND 1/2 TABLET AT NIGHT Oral for 15 Days Active Protonix Active amLODIPine Besylate 10 MG Oral for 90 Days Active Gabapentin 300 MG TAKE 6 CAPSULES BY M OUTH EVERY DAY Oral for 30 Days Active Multaq 400 MG TAKE 1 TABLET BY CHUCK TH TWICE DAILY Oral for 30 Days Active Clobetasol Propionate 0.05 % APPLY SPARI NGLY TO PSORIASIS TWICE DAILY NEEDED FOR UP TO 2 WEEKS AT A TIME External for 30 Days Active Calcipotriene 0.005 % External for 25 Days Active Ivermectin 1 % External for 20 Days Active Desonide Active Social History Tobacco Use: Social History Observation Description Date Details (start date - stop date) Never Smoker NA - NA Tobacco Use/Smoking Question Answer Notes Are you a: nonsmoker Additional Findings: Tobacco Non-User Current no n-smoker Alcohol Screen Question Answer Notes Did you have a drink contain ing alcohol in the past year? Yes How often did you have a dri nk containing alcohol in the past year? 4 or more times a week (4 points) How often did you have 6 or more drinks on one occasion in the past year? Daily or almost daily (4 points) Points 8 Interpretation Positive Tobacco use other than smoking: Question Answer Notes Are you an other tobacco user? 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 Problem Interstitial myositis (07167234) Interstitial myositis of left foot (M60.172) Active confirmed Problem Osteoarthritis of midtarsal joint of left foot (1827999152007702 ) Osteoarthritis of midtarsal joint of left foot (M19.072) Active confirmed Vital Signs Height 6 ft 2 in in 02/13/2024 Weight 235 lbs 02/13/2024 BMI 30.17 kg/m2 02/13/2024 Encounters Encounter Location Date Provider Diagnosis [facility] [address] 02/13/2024 Marion Barrett Pain in left foot M79.672 ; Plantar fasciitis of left foot M72.2 ; Calcaneal spur, left foot M77.32 ; Interstitial myositis of left foot M60.172 ; Bursitis of left foot M77.52 ; Pain in left ankle and joints of left foot M25.572 ; Arthritis of left subtalar joint M19.072 and Tarsal coalition Q66.89 [facility] [address] 01/30/2024 Marion Barrett [address] [address] 02/12/2024 Marion Barrett Assessments Encounter Date Diagnosis (ICD Code) Assessment Notes Treatment Notes Treatment Clinical Notes Section Notes 02/13/2024 Pain in left foot (ICD-10 - M79.672) 02/13/2024 Plantar fasciitis of left foot (ICD-10 - M72.2) Patient Educated with: HEEL CORD STRETCHES.pdf (HEEL CORD STRETCHES.pdf) Patient Educated with: RICE THERAPY.pdf (RICE THERAPY.pdf) 02/13/2024 Calcaneal spur, left foot (ICD-10 - M77.32) 02/13/2024 Interstitial myositis of left foot (ICD-10 - M60.172) 02/13/2024 Bursitis of left foot (ICD-10 - M77.52) 02/13/2024 Pain in left ankle and joints of left foot (ICD-10 - M25.572) 02/13/2024 Arthritis of left subtalar joint (ICD-10 - M19.072) 02/13/2024 Tarsal coalition (ICD-10 - Q66.89) Plan Of Treatment Pending Test Test Name Order Date X ray : Foot, left 3V 02/13/2024 Insurance Providers Payer Name Payer Address Payer Phone Subscriber Number Group Number Insured Name Patient Relationship to Insured Coverage Start Date Coverage End Date Medicare National [employer] S[employer] [address] [place] [address] [id number] Shaheed Vora i Self - patient is the insured [facility] [address] [place] [address] [id number] Shaheed Vora i Self - patient is the insured Medical (General) History Medical History History ICD Code Arthritis CAD (Cholesterol) Heart disease High Blood Pressure Psoriasis/eczema Reflux ( GERD) Measles Mumps Chicken pox Joint implants/screws Surgical History Surgery Date(Month/Year) hernia right knee replacement right hip replacement left hip replacement cardiac ablasion
== END ==
LOC: HO.CARD 11:25
PROVIDERS: PCP Family Medicine; Visit Provider Internal Medicine
DX: I48.0 Paroxysmal atrial fibrillation (principal)
CPT/HCPCS: 93242

== ENCOUNTER → 2024-09-29 11:28 | Outpatient (BNV) | payer MEDICARE, BC, SELFPAY | PROVIDERS: PCP Family Medicine; Visit Provider Internal Medicine Cardiovascular Disease | DX: I48.91 Unspecified atrial fibrillation (principal); I49.3 Ventricular premature depolarization; I49.1 Atrial premature depolarization | CPT/HCPCS: 93244 ==

== ENCOUNTER 2024-10-09 11:00 | Outpatient (AMB) | payer MEDICARE, BC, SELFPAY ==
[2024-10-09 11:05] VITALS: BP 124/66; PULSE 59; BMI 30.5
--- NOTE | 2024-10-09 11:05 | MHC.OFFVIS ---
Vital Signs 10/09/24 11:05 Height 6 ft 2 in Weight 237 lb 10.533 oz BMI 30.5 BP 124/66 Blood Pressure Location Lt brachial Position Sitting Pulse 59 Pulse Source Monitor Intake Visit Reasons: 6 mth f/up w/ ekg/ holter In Service Education Teacher Required: No Accompanied by: Self / Same As Patient Allergies Penicillins [PENICILLINS] Allergy (Intermediate, Verified 04/11/23 09:19) RASH Medication List - Last Reconciled 10/09/24 by Aakash Valles MD amlodipine (Norvasc) 10 mg PO DAILY azelaic acid 15% 1 appl topical BID dronedarone (Multaq) 400 mg PO BID gabapentin (Neurontin) 600 mg PO TID metoprolol succinate ER 100 mg PO DAILY pantoprazole (Protonix) 40 mg PO DAILY rivaroxaban (Xarelto) 20 mg PO DAILY rosuvastatin 40 mg PO DAILY HPI Comments Details: Suman returns for follow-up regarding atrial fibrillation, coronary disease. He was maintained on flecainide for a long time but after diagnosis of CAD that was stopped. Then put on Amiodarone and went for ablation. After the ablation, he was initially feeling okay but again having palpitations. Then Holter had shown frequent PACs as well as atrial fibrillation. Since then, he has been on Multaq. He states he is still feels some palpitations but not as much as before. Recently, his Apple watch has been showing atrial fibrillation % and had shown as much as 12% according to him. However, not clear if it is just picking up PACs rather. [facility] Medical History ANNABELLA on CPAP Essential hypertension PAF (paroxysmal atrial fibrillation) Surgical History History of total right knee replacement (~01/02/19) Family History Father Cancer Mother Stroke CVD (cardiovascular disease) Social History Alcohol intake: current Alcohol intake frequency: a few times a week Patient Tobacco Use Status: Never used Tobacco Review of Systems Const Denies chills, Denies fatigue, Denies fever(s), Denies frequent falls, Denies weakness, Denies weight gain and Denies weight loss ENT Denies dizziness Card Denies chest pain, Denies leg edema, Denies lightheadedness, Denies palpitations, Denies dyspnea and Denies dyspnea on exertion Resp Denies cough, Denies dyspnea and Denies dyspnea on exertion GI Denies hematochezia Musc Denies abnormal gait, Denies muscle weakness, Denies numbness, Denies radiating pain into limb and Denies tingling Neuro Denies abnormal gait, Denies dizziness, Denies frequent falls, Denies numbness, Denies tingling and Denies weakness Endo Denies fatigue and Denies palpitations Physical Exam Vital Signs: Last Vital Signs Pulse 59 10/09/24 11:05 BP 124/66 10/09/24 11:05 BMI result Body Mass Index 30.5 Const General: comfortable and no acute distress Orientation/consciousness: patient oriented x3 HEENT Other: Unremarkable Head: Yes normal to inspection Neck Neck: Yes normal visual inspection Chest Chest palpation & inspection: normal inspection of the chest Resp Auscultation: clear to auscultation bilaterally Cardio Palpation: normal PMI Heart sounds: S1 normal heart sound present, S2 normal heart sound present, no gallops, no murmurs and no rubs GI Palpation (GI): Soft to palpation Back/Spine/Pelvis Other: unremarkable Skin General skin exam: no rashes or lesions noted Neuro General: patient oriented x3 Extrem General: Yes normal to inspection Psych Mental Status: mental status grossly normal Office Procedures EKG Details: EKG with underlying sinus bradycardia at 59/Min;; no ischemic changes; [place]. [address]-Ppreymdtcqlfgoswg, Complete Assessment & Plan Assessment & Plan (1) Atherosclerotic cardiovascular disease: Code(s): I25.10 - Atherosclerotic heart disease of [place] coronary artery without angina pectoris Category: Medical Plan: Cardiac catheterization data reviewed. Left main 40-50% stenosis. Moderate LAD disease. D1 70% stenosis. 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 Small RCA with mild disease. Last LDL 58mg/dl. Continue beta-blockers and statins. (2) PAF (paroxysmal atrial fibrillation): Code(s): I48.0 - Paroxysmal atrial fibrillation Category: Medical Plan: Status post ablation. Last Holter shows atrial fibrillation burden of 5% and also has frequent PACs. Hence back on antiarrhythmic therapy and tolerating Multaq well. We will await the repeat Holter. If any significant atrial fibrillation permanent, consider another ablation. However, he also has frequent PACs and hence there is definitely increased risk of atrial fibrillation in the future. Continue Xarelto. (3) Encounter for monitoring anti-arrhythmic therapy: Code(s): Z51.81 - Encounter for therapeutic drug level monitoring; Z79.899 - Other long chain beamer (current) drug therapy Category: Medical Plan: On Multaq. Repeat EKG in 3 months. (4) Essential hypertension: Code(s): I10 - Essential (primary) hypertension Category: Medical Plan: Stable. (5) ANNABELLA on CPAP: Code(s): G47.33 - Obstructive sleep apnea (adult) (pediatric); Z99.89 - Dependence on other enabling machines and devices Category: Medical Plan: Continue CPAP. Plan Discussion Notes During the consultation, we discussed the ongoing management of the patient's atrial fibrillation and associated premature atrial contractions. I advised awaiting the heart monitor results to evaluate any significant findings that might necessitate a second ablation. I mentioned that repeat ablation is possible if significant atrial fibrillation is present on Holter but PACs are non-ablatable. Scheduled an EKG in three months as part of standard care with Multaq, followed by a six-month follow-up unless symptoms intensify. We reviewed lipid management with existing prescriptions. We discussed factors influencing the variability of monitoring timelines and acknowledged possible procedural inefficiencies. The patient consented to the outlined plan with an understanding of the ongoing management strategy and adjusted scheduling for test results. Patient was informed and verbally consented to the use of an ambient scribe for clinic note documentation during this visit. Patient Instructions: - Continue using your smartwatch to monitor heart activity. - Await the results of your heart monitor. - Attend the scheduled EKG in three months. - Plan to come for a follow-up visit in six months unless there are noticeable changes in your symptoms. - Keep taking your current medications as prescribed for cholesterol. - Contact us if you experience increased symptoms or have concerns. - Ensure all lab work gets done at your usual clinic. Coding Level of Care Code Est Pt Level 4 (04732) Complex EM visit Add On G2211 Diagnoses Atherosclerotic cardiovascular disease I25.10 PAF (paroxysmal atrial fibrillation) I48.0 Encounter for monitoring anti-arrhythmic therapy Z51.81; Z79.899 Essential hypertension I10 ANNABELLA on CPAP G47.33; Z99.89 CPT Codes EKG - CPT: 65326-[id number], Complete ([id number])
--- OUTSIDE RECORDS SUMMARY | 2024-10-09 12:58 | XMS_ITS | Patient Health Record ---
Author Organization [facility] sabi [place] Address [address] 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 (9173183842474427 ) Osteoarthritis of midtarsal joint of left foot (M19.072) Active confirmed Vital Signs Height 6 ft 2 in in 02/13/2024 Weight 235 lbs 02/13/2024 BMI 30.17 kg/m2 02/13/2024 Encounters Encounter Location Date Provider Diagnosis [facility] [address] 02/13/2024 Marion Barrett Pain in left foot M79.672 ; Plantar fasciitis of left foot M72.2 ; Calcaneal spur, left foot M77.32 ; Interstitial myositis of left foot M60.172 ; Bursitis of left foot M77.52 ; Pain in left ankle and joints of left foot M25.572 ; Arthritis of left subtalar joint M19.072 and [facility]arsal coalition Q66.89 [facility] [address] 01/30/2024 Marion Barrett [address] [address] 02/12/2024 Marion Barrett Assessments Encounter Date Diagnosis [...] Medicare National Govt Svcs Inc [address] [facility] [place] [address] [id number] Shaheed Vora i Self - patient is the insured [facility] [address] [place] [address] [phone] [id number] Shaheed Vora i Self - patient is the insured Medical (General) History Medical History History ICD Code Arthritis CAD (Cholesterol) Heart disease High Blood Pressure Psoriasis/eczema Reflux ( GERD) Measles Mumps Chicken pox Joint implants/screws Surgical History Surgery Date(Month/Year) hernia right knee replacement right hip replacement left hip replacement cardiac ablasion
== END 2024-10-09 11:28 | disposition home or self-care (01) ==
PROVIDERS: PCP Family Medicine; Visit Provider Internal Medicine
DX: I25.10 Atherosclerotic heart disease of native coronary artery without angina pectoris (principal); I48.0 Paroxysmal atrial fibrillation; Z51.81 Encounter for therapeutic drug level monitoring; Z79.899 Other long term (current) drug therapy; I10 Essential (primary) hypertension; G47.33 Obstructive sleep apnea (adult) (pediatric); Z99.89 Dependence on other enabling machines and devices
CPT/HCPCS: 93010; 99214; G2211

== ENCOUNTER → 2024-10-09 11:00 | Outpatient (BNVA) | payer MEDICARE, BC, SELFPAY | PROVIDERS: PCP Family Medicine; Visit Provider Internal Medicine | DX: I25.10 Atherosclerotic heart disease of native coronary artery without angina pectoris (principal); I48.0 Paroxysmal atrial fibrillation; I10 Essential (primary) hypertension; G47.33 Obstructive sleep apnea (adult) (pediatric); Z79.899 Other long term (current) drug therapy; Z99.89 Dependence on other enabling machines and devices; Z51.81 Encounter for therapeutic drug level monitoring | CPT/HCPCS: 93005; 99212 ==